=== PATIENT | female | born 1965 | race Caucasian/White ===

== ENCOUNTER 2017-02-21 16:12 | Outpatient (CLI) | payer OTHER | END 2017-02-21 16:13 | disposition short-term general hospital (02) | DX: R07.9 Chest pain, unspecified (principal) | CPT/HCPCS: A0425; A0427 ==

== ENCOUNTER 2017-03-06 14:47 | Outpatient (CLI) | payer OTHER | END 2017-03-06 14:48 | disposition home or self-care (01) | DX: G47.10 Hypersomnia, unspecified (principal); G47.8 Other sleep disorders; R06.83 Snoring ==

== ENCOUNTER 2017-03-26 19:18 | Outpatient (CLI) | payer OTHER | END 2017-03-26 19:19 | disposition home or self-care (01) | LOC: SC 19:18 | PROVIDERS: ATTEND Specialist | DX: G47.00 Insomnia, unspecified (principal); R06.83 Snoring | CPT/HCPCS: 95810 ==

== ENCOUNTER 2017-04-24 13:00 | Outpatient (CLI) | payer OTHER | END 2017-04-24 13:01 | disposition home or self-care (01) | LOC: SC 13:00 | PROVIDERS: ATTEND Specialist | DX: R06.83 Snoring (principal); G47.00 Insomnia, unspecified | CPT/HCPCS: 99212; 99213 ==

== ENCOUNTER 2018-03-22 13:36 | Outpatient (CLI) | payer OTHER ==
--- NOTE | 2018-03-25 17:33 | DEXA Report ---
DEXA SCAN: 03/22/2018 INDICATION: Loss of height. Celiac disease. Evaluate bone mineral density. TECHNIQUE: Dual energy x-ray absorptiometry (DXA) was performed on a Ansible system. Regions measured are the lumbar spine and hip. COMPARISON: None. In accordance with the International Society for Clinical Densitometry (ISCD) guidelines, data from previous exams may be reanalyzed using current recommendations and techniques. This is done to allow a more accurate basis for comparison with the current study. FINDINGS The data for the lumbar spine is as follows: REGION BMD (g/cm/cm) T-SCORE Z-SCORE L1 0.906 -1.9 -2.0 L2 1.108 -0.8 -0.9 L3 1.055 -1.2 -1.4 L4 0.945 -2.1 -2.3 L1-L4 1.003 -1.5 -1.6 NOTE: All evaluable vertebrae are used for classification. The data for the hip is as follows: REGION BMD (g/cm/cm) T-SCORE Z-SCORE Neck 0.856 -1.3 -0.9 TOTAL 0.949 -0.5 -0.4 NOTE: The femoral neck or total proximal femur, whichever is lowest, is used for classification. Lumbar spine bone mineral density L1-L4 1.003 grams per cm2. T-score -1.5, Z- score -1.6. WHO classification osteopenia. Femoral neck bone mineral density 0.856 grams per cm2. T-score -1.3, Z-score - 0.9. WHO classification osteopenia. IMPRESSION WHO CLASSIFICATION BASED ON THE INTERNATIONAL REFERENCE STANDARD IS OSTEOPENIA. FRACTURE RISK IS INCREASED. RECOMMENDATION: Patients with diagnosis of osteoporosis or osteopenia should have regular bone mineral density assessment. For those eligible for Medicare, routine testing is allowed once every 2 years. Testing frequency can be increased for patients who have rapidly progressing disease or for those who are receiving medical therapy to restore bone mass. COMMENT World Health Organization (WHO) definitions for osteoporosis and osteopenia: NORMAL BMD: T-score at 1.0 or higher, fracture risk is low. OSTEOPENIA BMD: T-score between 1.0 and -2.5, fracture risk is increased. OSTEOPOROSIS BMD: T-score at 2.5 or lower, fracture risk high. National Osteoporosis Foundation recommends: 1. Obtain adequate dietary calcium (at least 1200 mg per day) and vitamin D (400 -800 international units per day). 2. Participate, as appropriate, in regular weightbearing and muscle- strengthening exercise. 3. Avoid tobacco use and reduce alcohol and caffeine intake. 4. For more detailed information see the website at www.NOF.org. TD: 03/22/2018 17:37 DIOR
== END 2018-03-22 13:37 | disposition home or self-care (01) ==
LOC: DI 13:36
PROVIDERS: ATTEND Family Medicine
DX: R29.890 Loss of height (principal); K90.0 Celiac disease; M85.80 Other specified disorders of bone density and structure, unspecified site
CPT/HCPCS: 77080

== ENCOUNTER 2018-05-25 17:44 | Outpatient (CLI) | payer OTHER | END 2018-05-25 17:45 | disposition critical access hospital (66) | LOC: EMS 17:44 | PROVIDERS: ATTEND Surgery | DX: R09.89 Other specified symptoms and signs involving the circulatory and respiratory systems (principal) | CPT/HCPCS: A0425; A0429 ==

== ENCOUNTER 2018-05-25 18:06 | Emergency (ER) | payer OTHER ==
--- NOTE | 2018-05-25 18:13 | ED Physician Documentation ---
PD HPI CHEST PAIN - Stated complaint Stated Complaint: HEART FLUTTER - History obtained from History obtained from: Patient, EMS - History of Present Illness Timing - onset: Other (52-year-old woman with a known left bundle branch block for the last 10 years status post negative nuclear stress testing presents with heart fluttering in the evenings for the last 3 nights in the setting of decreased oral intake and some increased alcohol use at night. She got worried about it today after consulting the Internet. Is not really painful, is just a fluttering and it lasted about 30 minutes tonight. There is no associated pedal edema or calf pain. No shortness of breath.) Review of Systems Constitutional: denies: Fever, Chills Cardiac: denies: Pedal edema, Calf pain Respiratory: denies: Hemoptysis, Wheezing GI: denies: Abdominal Pain, Nausea, Vomiting PD PAST MEDICAL HISTORY - Past Medical History Past Medical History: Yes Cardiovascular: Other (LBBB) GI: Other (Celiac) - Social History Does the pt smoke?: No Does the pt drink ETOH?: Yes Does the pt have substance abuse?: No PD ED PE NORMAL - Vitals Vital signs reviewed: Yes - General General: Alert and oriented X 3, No acute distress - HEENT HEENT: PERRL, EOMI - Neck Neck: Supple, no meningeal sign, No bony TTP - Cardiac Cardiac: RRR, No murmur - Respiratory Respiratory: No respiratory distress, Clear bilaterally - Abdomen Abdomen: Non tender - Extremities Extremities: No edema, No calf tenderness / cord - Neuro Neuro: Alert and oriented X 3, cell coverer 2-12 intact Eye Opening: Spontaneous Motor: Obeys Commands Verbal: Oriented GCS Score: 15 - Psych Psych: Normal mood, Normal affect Results - Vitals Vitals: Vital Signs - 24 hr 05/25/18 18:15 Heart Rate 109 H Respiratory 18 Rate Blood Pressure 120/95 H O2 Saturation 98 Oxygen O2 Source Room air - EKG (time done) 1813 Rate: Rate (enter#) (93) Rhythm: NSR Intervals: LBBB Computer interpretation: Agree with computer - Labs Labs: Laboratory Tests 05/25/18 05/25/18 05/25/18 18:30 18:30 18:30 WBC 7.6 RBC 3.92 L Hgb 13.3 Hct 39.1 MCV 99.6 H MCH 33.9 H MCHC 34.1 RDW 13.4 Plt Count 318 MPV 7.1 L Neut # (Auto) 4.8 Lymph # (Auto) 1.9 [place] # (Auto) 0.7 Eos # (Auto) 0.2 Baso # (Auto) 0.1 Absolute Nucleated RBC 0.01 Nucleated RBC % 0.1 Sodium 137 Potassium 3.7 Chloride 99 L Carbon Dioxide 27 Anion Gap 11.0 BUN 12 Creatinine 0.9 Estimated GFR (MDRD) 66 L Glucose 173 H Calcium 8.9 Total Bilirubin 0.6 AST 64 H ALT 58 Alkaline Phosphatase 61 Troponin I < 0.04 Total Protein 7.7 Albumin 3.8 Globulin 3.9 Albumin/Globulin Ratio 1.0 Lipase 29 Ethyl Alcohol < 5.0 PD MEDICAL DECISION MAKING - ED course ED course: 52-year-old woman with resolved palpitations, could be atrial flutter by her history. She was without arrhythmia on the monitor here and the rest for workup was benign but she did have a very mildly elevated AST and advised to decrease alcohol use. - Sepsis Event Vital Signs: Vital Signs - 24 hr 05/25/18 18:15 Heart Rate 109 H Respiratory 18 Rate Blood Pressure 120/95 H O2 Saturation 98 Oxygen O2 Source Room air Departure - Departure Disposition: Home, Self Care Clinical Impression: Palpitations Hypertension Qualifiers: Hypertension type: essential hypertension Qualified Code(s): I10 - Essential ( primary) hypertension Condition: Good Record reviewed to determine appropriate education?: Yes Instructions: ED Palpitations, ED Paroxysmal Atrial Flutter Comments: If you have worsening symptoms please return for reevaluation, otherwise follow- up with your doctor for consideration for Holter monitor if symptoms are intermittently persistent.
[2018-05-25 18:19] VITALS: BP 120/95
[2018-05-25] MEDS ORDERED: SODIUM CHLORIDE 0.9% 1,000 ML IV ONE (18:22)
[2018-05-25 18:43] LABS: BASOPHILS # (AUTO) 0.1 10^3/uL (0.0-0.1); BASOPHILS % (AUTO) 1.2 %; EOSINOPHILS # (AUTO) 0.2 10^3/uL (0.0-0.7); EOSINOPHILS % (AUTO) 2.5 %; HGB - HEMOGLOBIN 13.3 g/dL (12.0-16.0); LYMPHOCYTES # (AUTO) 1.9 10^3/uL (1.5-3.5); LYMPHOCYTES % (AUTO) 24.7 %; MEAN CORPUSCULAR HEMOGLOBIN 33.9 pg (27.0-31.0); MEAN CORPUSCULAR HGB CONC 34.1 g/dL (32.0-36.0); MEAN CORPUSCULAR VOLUME 99.6 fL (81.0-99.0); MEAN PLATELET VOLUME 7.1 fL (7.9-10.8); MONOCYTES # (AUTO) 0.7 10^3/uL (0.0-1.0); MONOCYTES % (AUTO) 8.8 %; NEUTROPHILS # (AUTO) 4.8 10^3/uL (1.5-6.6); NEUTROPHILS % (AUTO) 62.8 %; PLT - PLATELET COUNT 318 10^3/uL (130-450); RED BLOOD COUNT 3.92 10^6/uL (4.20-5.40); RED CELL DISTRIBUTION WIDTH 13.4 % (12.0-15.0); WHITE BLOOD COUNT 7.6 x10^3/uL (4.8-10.8)
[2018-05-25 18:55] LABS: ALBUMIN 3.8 g/dL (3.2-5.5); ALKALINE PHOSPHATASE 61 IU/L (42-121); ALT ALANINE AMINOTRANSFERASE 58 IU/L (10-60); AST ASPARTATE AMINOTRANSFERASE 64 IU/L (10-42); BILIRUBIN,TOTAL 0.6 mg/dL (0.2-1.0); BUN - BLOOD UREA NITROGEN 12 mg/dL (6-20); CALCIUM 8.9 mg/dL (8.5-10.3); CARBON DIOXIDE - CO2 27 mmol/L (21-32); CHLORIDE 99 mmol/L (101-111); CREATININE 0.9 mg/dL (0.4-1.0); GFR - MDRD 66 (>89); GLUCOSE 173 mg/dL (70-100); LIPASE 29 U/L (22-51); SODIUM 137 mmol/L (135-145); TOTAL PROTEIN 7.7 g/dL (6.7-8.2)
[2018-05-25] MEDS ORDERED: KETOROLAC 60 MG/2 ML VIAL IVP STA (19:18)
== END 2018-05-25 19:41 | disposition home or self-care (01) ==
LOC: EDUNIT# → EDBD → ED 18:06
DX: R00.2 Palpitations (principal); I44.7 Left bundle-branch block, unspecified; I10 Essential (primary) hypertension; R74.8 Abnormal levels of other serum enzymes
CPT/HCPCS: 36415; 80053; 80320; 83690; 84484; 85025; 93005; 96361; 96374; 99283; 99284

== ENCOUNTER 2018-08-11 16:45 | Outpatient (CLI) | payer OTHER | END 2018-08-11 16:46 | disposition short-term general hospital (02) | LOC: EMS 16:45 | PROVIDERS: ATTEND Surgery | DX: R07.9 Chest pain, unspecified (principal); R00.2 Palpitations; R61 Generalized hyperhidrosis | CPT/HCPCS: A0425; A0427 ==

== ENCOUNTER 2018-10-03 17:37 | Emergency (ER) | payer OTHER ==
--- NOTE | 2018-10-03 17:47 | ED Physician Documentation ---
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) Timing - onset: Today (trip and fall directly onto shoulder, also hit wrist, abrasion on knee, but non-painful and walks normal) Review of Systems Constitutional: denies: Fever, Chills Throat: reports: Reviewed and negative Cardiac: reports: Reviewed and negative Respiratory: reports: Reviewed and negative Skin: reports: Reviewed and negative Musculoskeletal: reports: Reviewed and negative PD PAST MEDICAL HISTORY - Past Medical History Cardiovascular: Other (LBBB) GI: Other (Celiac) - Present Medications Home Medications: Ambulatory Orders Medication Instructions Recorded Confirmed RX: oxyCODONE [Roxicodone] 5 mg PO Q4-6H PRN #25 tablet 10/03/18 - Allergies Allergies/Adverse Reactions: Allergies Allergy/AdvReac Type Severity Reaction Status Date / Time No Known Drug Allergies Allergy Verified 10/03/18 17:45 - Social History Does the pt smoke?: No Smoking Status: Never smoker Does the pt drink ETOH?: Yes Does the pt have substance abuse?: No PD ED PE NORMAL - Vitals Vital signs reviewed: Yes - General General: Alert and oriented X 3, No acute distress - HEENT HEENT: PERRL, EOMI - Neck Neck: Supple, no meningeal sign, No bony TTP - Extremities Extremities: Other (Very tender the right upper humerus without obvious deformity. The wrist is nontender as is the elbow. She has normal sensation in the hand and normal thumb extension and interosseous strength. Unable to check flexion and extension at the wrist due to pain at the shoulder.) - Neuro Neuro: Alert and oriented X 3, Normal speech - Psych Psych: Normal mood, Normal affect Results - Vitals Vitals: Vital Signs - 24 hr 10/03/18 10/03/18 17:43 18:29 Temperature 35.3 C L 37.2 C Heart Rate 86 89 Respiratory 16 18 Rate Blood Pressure 141/94 H 142/88 H O2 Saturation 100 98 Oxygen O2 Source Room air - Rads (name of study) R wrist and humeral XRs Radiology: EMP read contemporaneously (Wrist is negative for fracture except noting that she has a scaphoid cyst; she has a mildly displaced oblique fracture of the proximal humeral shaft and a nondisplaced fracture of the neck and base of the greater tuberosity of the humerus.) Departure - Departure Disposition: 01 Home, Self Care Clinical Impression: Right humeral fracture, Sprain of wrist, right Condition: Good Record reviewed to determine appropriate education?: Yes Instructions: ED Fx Upper Ext Follow-Up: [facility] [Provider Group] - Within 1 week Prescriptions: RX: oxyCODONE [Roxicodone] 5 mg PO Q4-6H PRN #25 tablet PRN Reason: Pain Comments: Your blood pressure was elevated today on check into the emergency department. This does not mean that you have hypertension, it is a common phenomenon to come to the emergency department and have elevated blood pressure. I recommend that you see your primary care physician within the week to have it rechecked when you are feeling better. Do not drink or drive while taking narcotic pain medication. Note that many narcotic pain relievers also contain Tylenol/acetaminophen. Please ensure that your total dose of acetaminophen from all sources does not exceed 3 g (3000 mg) per day. You may get constipated while on this medication. Take a stool softener such as Colace twice a day while you are on it. Also add an [id number] laxative such as senna or MiraLAX on any day that you do not have a bowel movement. If you received a narcotic pain medication or sedative while in the emergency department, do not drive for the next 24 hours. Discharge Date/Time: 10/03/18 18:41
[2018-10-03] MEDS ORDERED: HYDROmorphone 1 MG/ML CARPUJECT IM STA (17:50)
[2018-10-03] MEDS ORDERED: oxyCODONE/ACET 5/325 Prepack 4 PO STA (18:20)
[2018-10-03] MEDS ORDERED: oxyCODONE 5 MG TABLET PO STA (18:20)
--- NOTE | 2018-10-03 18:28 | XRAY Report ---
Reason: fall, shoulder/wrist inj Procedure Date: 10/03/2018 Accession Number: [id number] / [id number] Procedure: XR - Wrist 4 View RT CPT Code: FULL RESULT: EXAM: RIGHT WRIST RADIOGRAPHY EXAM DATE: 10/03/2018 05:58 PM. CLINICAL HISTORY: Fall, shoulder/wrist inj. Right wrist pain. COMPARISON: None. TECHNIQUE: 4 views. FINDINGS: Bones: No acute fracture. No bony lesion. Cyst present within the scaphoid. Joints: Degenerative changes of the right first carpometacarpal joint. No dislocation. Negative ulnar variance. Soft Tissues: No radiopaque foreign bodies. IMPRESSION: 1. No acute osseous abnormalities. RADIA
[2018-10-03 18:30] VITALS: BP 142/88
--- NOTE | 2018-10-03 18:42 | XRAY Report ---
Reason: fall, shoulder/wrist inj Procedure Date: 10/03/2018 Accession Number: [id number] / [id number] Procedure: XR - Humerus RT CPT Code: FULL RESULT: EXAM: RIGHT HUMERUS RADIOGRAPHY EXAM DATE: 10/03/2018 06:20 PM. CLINICAL HISTORY: Fall, shoulder/wrist inj. COMPARISON: None. TECHNIQUE: 2 views. FINDINGS: Bones: Mildly displaced oblique proximal humeral shaft fracture. There is fracture extension to the humeral neck and base of greater tuberosity with slight displacement of the greater tuberosity. Joints: Normal. No effusions or subluxations in the visualized shoulder or elbow joints. Soft Tissues: Normal. No soft tissue swelling. IMPRESSION: 1. Mildly displaced oblique proximal humeral shaft fracture. There is also a nondisplaced fracture involving the neck of the humerus and base of greater tuberosity. RADIA
== END 2018-10-03 18:41 | disposition home or self-care (01) ==
LOC: EDUNIT# → ED 17:37
DX: S42.254A Nondisplaced fracture of greater tuberosity of right humerus, initial encounter for closed fracture (principal); S42.391A Other fracture of shaft of right humerus, initial encounter for closed fracture; W01.10XA Fall on same level from slipping, tripping and stumbling with subsequent striking against unspecified object, initial encounter; Y99.2 Volunteer activity; R03.0 Elevated blood-pressure reading, without diagnosis of hypertension
CPT/HCPCS: 73060; 73110; 96372; 99283; 99284; A9270; J1170

== ENCOUNTER 2019-02-26 10:42 | Day surgery (SDC) | payer OTHER ==
[2019-02-26] MEDS ORDERED: LACTATED RINGERS 1,000 ML IV ONE (10:47)
[2019-02-26] MEDS ORDERED: MIDAZOLAM 2 MG/2 ML VIAL IVP ONE (12:43)
[2019-02-26] MEDS ORDERED: fentaNYL 250 MCG/5 ML VIAL IVP ONE (12:43)
[2019-02-26 13:59] VITALS: BP 126/71
== END 2019-02-26 10:43 | disposition home or self-care (01) ==
LOC: SDS 10:42
PROVIDERS: ATTEND Internal Medicine
PROC: 0DBE8ZX Excision of Large Intestine, Via Natural or Artificial Opening Endoscopic, Diagnostic (ICD-10-PCS; 2019-02-26)
PROC: 0DBK8ZZ Excision of Ascending Colon, Via Natural or Artificial Opening Endoscopic (ICD-10-PCS; principal; 2019-02-26 12:00)
DX: R19.7 Diarrhea, unspecified (principal); D12.2 Benign neoplasm of ascending colon; K57.30 Diverticulosis of large intestine without perforation or abscess without bleeding; K64.8 Other hemorrhoids; K21.9 Gastro-esophageal reflux disease without esophagitis; K90.0 Celiac disease; R13.10 Dysphagia, unspecified
CPT/HCPCS: 45380; J3010; J7120

== ENCOUNTER 2020-10-04 18:25 | Outpatient (CLI) | payer OTHER | END 2020-10-04 18:26 | disposition short-term general hospital (02) | LOC: EMS 18:25 | PROVIDERS: ATTEND Surgery | DX: R07.89 Other chest pain (principal) | CPT/HCPCS: A0425; A0427 ==

== ENCOUNTER 2021-05-23 08:51 | Outpatient (CLI) | payer OTHER | END 2021-05-23 08:52 | disposition home or self-care (01) | LOC: LAB 08:51 | PROVIDERS: ATTEND Internal Medicine Gastroenterology | DX: R19.7 Diarrhea, unspecified (principal); K90.0 Celiac disease; K21.9 Gastro-esophageal reflux disease without esophagitis; R14.0 Abdominal distension (gaseous); R68.81 Early satiety; Z20.822 Contact with and (suspected) exposure to COVID-19 | CPT/HCPCS: 80053; 82150; 82784; 83516; 83690; 84443; 85025; 85610; 86255 ==

== ENCOUNTER 2023-11-05 20:40 | Outpatient (CLI) | payer OTHER | END 2023-11-05 23:59 | disposition short-term general hospital (02) | LOC: EMS 20:40 | DX: U07.1 COVID-19 (principal); R11.10 Vomiting, unspecified; R19.7 Diarrhea, unspecified | CPT/HCPCS: A0425; A0429 ==